=== PATIENT | male | born 1990 | race Caucasian/White ===

== ENCOUNTER 2020-09-10 17:58 | Emergency (ER) | payer OTHER ==
[2020-09-10 18:59] LABS: HEMOGLOBIN 17.5 gm/dl (14.0-17.5); RED BLOOD COUNT 5.71 M/UL (4.20-5.50); WHITE BLOOD COUNT 8.3 K/UL (4.5-11.0)
[2020-09-10 19:26] LABS: BUN/CREATININE RATIO 22 (0-10)
[2020-09-10] MEDS ORDERED: ZOFRAN ODT 4 MG4 MG PO (20:13)
== END 2020-09-10 20:30 | disposition home or self-care (01) ==
LOC: ER1 17:58
PROVIDERS: Family Medicine
DX: R11.2 Nausea with vomiting, unspecified (principal); F41.9 Anxiety disorder, unspecified; F17.210 Nicotine dependence, cigarettes, uncomplicated
CPT/HCPCS: 80053; 83690; 85025; 96374; 96375; 99284; C9113; J2405; J7050

== ENCOUNTER 2020-11-21 02:28 | Emergency (ER) | payer OTHER ==
[~2020-11-21 02:28] MED LIST: ZOFRAN ODT 4 MG4 MG PO
[2020-11-21 02:54] LABS: HEMOGLOBIN 16.6 gm/dl (14.0-17.5); RED BLOOD COUNT 5.43 M/UL (4.20-5.50); WHITE BLOOD COUNT 8.4 K/UL (4.5-11.0)
[2020-11-21 03:10] LABS: BUN/CREATININE RATIO 14 (0-10)
[2020-11-21] MEDS ORDERED: ZOFRAN ODT 4 MG4 MG PO (05:07)
[2020-11-21] MEDS ORDERED: BENTYL 20MG TAB20 MG PO (05:07)
[2020-11-21] MEDS ORDERED: LODINE CAP 300300 MG PO (05:13)
== END 2020-11-21 05:18 | disposition home or self-care (01) ==
LOC: ER1 02:28
PROVIDERS: Physician Assistant
DX: K80.50 Calculus of bile duct without cholangitis or cholecystitis without obstruction (principal); F17.210 Nicotine dependence, cigarettes, uncomplicated
CPT/HCPCS: 80053; 83690; 85025; 96374; 96375; 99284; J1885; J2405; Q9967

== ENCOUNTER → 2020-12-02 | Outpatient (CLI) | payer OTHER ==
[~2020-12-02] MED LIST changes: +BENTYL 20MG TAB20 MG PO; +LODINE CAP 300300 MG PO
== END ==
LOC: EXRD 08:00
DX: R10.11 Right upper quadrant pain (principal)
CPT/HCPCS: 76705

== ENCOUNTER 2021-01-18 16:43 | Emergency (ER) | payer OTHER ==
[2021-01-18] MEDS ORDERED: NAPROSYN500 MG PO (17:29)
[2021-01-18] MEDS ORDERED: PENICILLIN V P500 MG PO (17:29)
== END 2021-01-18 17:35 | disposition home or self-care (01) ==
LOC: ER1 16:43
DX: K02.9 Dental caries, unspecified (principal); K05.10 Chronic gingivitis, plaque induced
CPT/HCPCS: 99282